=== PATIENT | male | born 1995 | race Caucasian/White ===

== ENCOUNTER 2020-01-06 02:45 | Emergency (ER) | payer BC, MEDICAID ==
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
[2020-01-06 03:32] VITALS: BP 139/96; PULSE 100
[2020-01-06 03:40] LABS: BARBITURATE SCREEN,URINE NEGATIVE (NEGATIVE); BENZODIAZEPINES SCREEN,URINE NEGATIVE (NEGATIVE); EDDP,URINE SCREEN NEGATIVE (NEGATIVE); METHAMPHETAMINE SCREEN, URINE NEGATIVE (NEGATIVE); TCA SCREEN,URINE NEGATIVE (NEGATIVE); THC SCREEN,URINE 50 NG/ML POSITIVE (NEGATIVE)
[2020-01-06 03:57] LABS: CHLORIDE,CL 106 mmol/L (98-107); SODIUM,NA 144 mmol/L (136-145)
[2020-01-06 03:59] LABS: ANION GAP 16.8 mmol/L (10-20)
[2020-01-06 04:09] LABS: ACETAMINOPHEN 0 ug/ml (10-30)
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
== END 2020-01-06 05:03 ==
LOC: VM.ED 02:45
DX: F32.9 Major depressive disorder, single episode, unspecified (principal); F10.10 Alcohol abuse, uncomplicated; Y90.7 Blood alcohol level of 200-239 mg/100 ml
CPT/HCPCS: 36415; 73130-RT; 80053; 80305-QW; 80307; 81001; 84443; 85025; 85610; 99285-25

== ENCOUNTER 2025-06-21 18:17 | Emergency (ER) | payer BC, MEDICAID | END 2025-06-21 18:38 | disposition home or self-care (01) | LOC: VM.ED 18:17 → MERGE 18:17 → VM.ED 18:38 | DX: S90.454A Superficial foreign body, right lesser toe(s), initial encounter (principal); F17.200 Nicotine dependence, unspecified, uncomplicated; W45.8XXA Other foreign body or object entering through skin, initial encounter | CPT/HCPCS: 99283; J2003 ==